=== PATIENT | male | born 1950 | race Caucasian/White ===

== ENCOUNTER → 2017-06-29 | Outpatient (CLI) | payer OTHER, MEDICARE ==
[~2017-06-29] MED LIST: CARDI-OMEGA1000 MG PO; DIOVAN HCT 12.51 TAB PO; MULTIPLE VITAMI1 CAP PO; PREVACID 30MG30 M1 PO; VITAMIN E1000 U/CAP PO; XANAX0.25 MG PO
[2017-06-29 13:26] LABS: HIV 1/2 Antibodies Non-Reactive; HIV-1p24 Antigen Non-Reactive
== END ==
LOC: COL.LAB 11:43
PROVIDERS: Orthopaedic Surgery
DX: Z01.812 Encounter for preprocedural laboratory examination (principal); M17.11 Unilateral primary osteoarthritis, right knee

== ENCOUNTER → 2020-12-15 | Outpatient (CLI) | payer OTHER | LOC: COL.RAD 07:59 | DX: K80.20 Calculus of gallbladder without cholecystitis without obstruction (principal); C79.51 Secondary malignant neoplasm of bone; C61 Malignant neoplasm of prostate; Z90.79 Acquired absence of other genital organ(s); Z96.89 Presence of other specified functional implants | CPT/HCPCS: A9503; Q9967 ==

== ENCOUNTER → 2021-04-12 | Outpatient (CLI) | payer OTHER | LOC: COL.RAD 09:15 | DX: Z01.812 Encounter for preprocedural laboratory examination (principal); C61 Malignant neoplasm of prostate; C79.51 Secondary malignant neoplasm of bone; Z90.89 Acquired absence of other organs | CPT/HCPCS: A9503; Q9967 ==

== ENCOUNTER → 2021-09-27 | Outpatient (CLI) | payer OTHER | LOC: COL.RAD 08:52 | DX: C61 Malignant neoplasm of prostate (principal) | CPT/HCPCS: A9503; Q9967 ==

== ENCOUNTER 2021-12-28 18:17 | Emergency (ER) | payer OTHER ==
[~2021-12-28] VITALS: Ht 180.3 cm; Wt 104.5 kg
[~2021-12-28 18:17] MED LIST changes: +XANAX .25M0.25 MG/TA PO; -XANAX0.25 MG PO
[2021-12-28 18:33] VITALS: TEMP 98.1
[2021-12-28] MEDS ORDERED: CALCIUM 600-D 61 TAB PO (18:57)
[2021-12-28] MEDS ORDERED: VITAMIN C500 MG PO (18:57)
[2021-12-28] MEDS ORDERED: LIDODERM 5% PATC1 EA TP (19:26)
[2021-12-28 19:34] VITALS: BP 131/72; PULSE 88
== END 2021-12-28 19:33 | disposition home or self-care (01) ==
LOC: COL.ER 18:17
DX: R07.81 Pleurodynia (principal); W10.9XXA Fall (on) (from) unspecified stairs and steps, initial encounter; Y93.53 Activity, golf

== ENCOUNTER 2022-01-10 19:56 | Observation (INO) | payer MEDICARE, OTHER ==
[~2022-01-10] VITALS: Ht 180.3 cm; Wt 100.0 kg
[~2022-01-10 19:56] MED LIST changes: +CALCIUM 600-D 61 TAB PO; +LIDODERM 5% PATC1 EA TP; +VITAMIN C500 MG PO
[2022-01-10 20:28] LABS: COLLECTION METHOD CLEAN CATCH
[2022-01-10 20:33] LABS: PH 7 (5-8); SQUAMOUS EPITHELIAL None Seen /hpf (0-10); URINE APPEARANCE Clear (CLEAR/HAZY); URINE BACTERIA None Seen /hpf (NONE SEEN); URINE BILIRUBIN Negative (NEGATIVE); URINE BLOOD Negative (NEGATIVE); URINE COLOR Straw (YELLOW); URINE GLUCOSE Negative (NEGATIVE); URINE KETONE 1+ (NEGATIVE); URINE LEUKOCYTE ESTERASE Negative (NEGATIVE); URINE NITRATE Negative (NEGATIVE); URINE PROTEIN(semi-quant) Negative (NEGATIVE); URINE RBC 0-2 /hpf (0-2); URINE UROBILINOGEN Negative (NEGATIVE)
[2022-01-10 20:52] LABS: BASO % 0.2 % (0.0-2.0); EOS % 0.1 % (0.0-4.0); GRAN # 14.3 K/mm3 (1.4-6.5); GRAN % 88.6 % (42.2-75.2); HEMATOCRIT 37.1 % (42.0-52.0); HEMOGLOBIN 13.3 g/dl (13.5-18.0); LYMPH # 0.8 K/mm3 (1.2-3.4); LYMPH % 4.9 % (20.0-51.0); MEAN CELL VOLUME 89 fl (80.0-100.0); MEAN CORPUSCULAR HEMOGLOBIN 32 pg (27-31); MEAN CORPUSCULAR HGB CONC 36 g/dl (33.0-37.0); MONO # 0.9 K/mm3 (0.1-0.6); MONO % 5.6 % (1.7-9.3); PLATELET COUNT 290 K/mm3 (130-400); RED BLOOD COUNT 4.16 M/mm3 (4.20-5.60); REDCELL DISTRIBUTION WIDTH-CV 11.1 % (11.5-14.5)
[2022-01-10 21:06] LABS: ALANINE AMINOTRANSFERASE 12 U/L (0-55); ALBUMIN 4.3 gm/dL (3.4-4.8); ALKALINE PHOSPHATASE 86 U/L (40-150); ANION GAP 18 mmol/L (7-16); AST,SGOT 24 U/L (5-34); BILIRUBIN,TOTAL 0.6 mg/dL (0.2-1.2); BLOOD UREA NITROGEN 9 mg/dL (8-26); CALCIUM 9.1 mg/dL (8.4-10.2); CARBON DIOXIDE 23 mmol/L (23-31); CHLORIDE 91 mmol/L (98-107); CREATININE, serum 0.77 mg/dL (0.72-1.25); GLUCOSE 128 mg/dL (70-99); LIPASE 18 U/L (8-78); POTASSIUM 3.6 mmol/L (3.5-4.5); SODIUM 132 mmol/L (136-145); TOTAL PROTEIN 7.5 gm/dL (6.2-8.1)
[2022-01-10 21:14] LABS: TROPONIN-I < 0.010 ng/mL (0.00-0.033)
[2022-01-11] MEDS ORDERED: IBU600 MG PO (02:21)
[2022-01-11 09:11] LABS: HEMOGLOBIN 12.1 g/dl (13.5-18.0); MEAN CELL VOLUME 93 fl (80.0-100.0); MEAN CORPUSCULAR HEMOGLOBIN 32 pg (27-31); MEAN CORPUSCULAR HGB CONC 35 g/dl (33.0-37.0); MEAN PLATELET VOLUME 8.7 fl (7.4-10.4); PLATELET COUNT 238 K/mm3 (130-400); RED BLOOD COUNT 3.75 M/mm3 (4.20-5.60); REDCELL DISTRIBUTION WIDTH-CV 11.3 % (11.5-14.5)
[2022-01-11 09:16] LABS: HEMATOCRIT 34.8 % (42.0-52.0)
[2022-01-11 09:25] LABS: CALCIUM 8.5 mg/dL (8.4-10.2); CREATININE, serum 0.76 mg/dL (0.72-1.25); POTASSIUM 3.3 mmol/L (3.5-4.5)
[2022-01-11 09:33] LABS: TROPONIN-I 0.017 ng/mL (0.00-0.033)
[2022-01-11 09:38] LABS: BAND 19 % (0-10); LYMPHOCYTE 5 % (20.0-51.0); NEUTROPHILS 73 % (42.0-75.2)
[2022-01-11 09:39] LABS: PLATELET ESTIMATE NORMAL (NORMAL)
[2022-01-11 13:48] VITALS: BP 133/59; PULSE 91; TEMP 100.4
--- NOTE | 2022-01-11 15:08 | NUR ---
PATIENT ARRIVED ON FLOOR IN BED, ACCOMPANIED WITH ER NURSE. NO COMPLAINTS OF PAIN. LOW GRADE FEVER. RESTING COMFORTABLY. CONSENT SIGNED. IV ICGREEN GIVEN. AWAITING TRANSPORT TO OR.
--- NOTE | 2022-01-11 16:04 | NUR ---
PATIENT TRANSFERED TO [facility] IN BED, 1000ML BAG OF NS HUNG ON STRAIGHT TUBING. VITALS STABLE, NO COMPLAINTS OF PAIN.
--- NOTE | 2022-01-11 18:24 | NUR ---
PATIENT IN OR, ON FLOOR FOR 2HRS THEN TRANSFERED TO [facility]. NO COMPLAINTS OF PAIN. NO SIGNIFICANT EVENTS DURING TME IN [facility]'S [facility]ARE. TEMP OF 100.4, NOTED TO [facility] RN.
[2022-01-11 18:41] VITALS: BP 113/78; PULSE 83; TEMP 98.3
--- NOTE | 2022-01-11 22:04 | NUR ---
PATIENT RECEIVED AROUND 1955 STABLE POST OP SURGICAL INCISION TO ABD AREA INTACT X5 ROUNDED BOWEL SOUNDS HYPOACTIVE. NO PAIN NOTED AT THIS TIME TOLERATING CLEAR LIQUID DIET NO NAUSEA OR VOMITING NOTED. CONTINUING ON IV ABX ZOSYN. REMAINS ON 4L/NC 02SAT 96% NO S/S OF SOB OR DISTRESS NOTED. CALL LIGHT WITHIN REACH [facility] CONTINUE TO MONITOR.
[2022-01-11 23:00] VITALS: BP 120/63; PULSE 107
[2022-01-11 23:25] VITALS: BP 122/64; PULSE 85; TEMP 98.9
[2022-01-12 00:17] VITALS: BP 121/65; PULSE 73
[2022-01-12 04:17] VITALS: BP 141/66; PULSE 96; TEMP 98.3
--- NOTE | 2022-01-12 06:06 | NUR ---
PATIENT WAS ABLE TO AMBULATE TO BR TOLERATING WELL BELCHING AND HAD BOWEL MOVEMENT X2 LAST NIGHT. VERY PLEASE WITH HOW WELL HIS PAIN IS GONE AND FEELING VERY COMFORTABLE. NO S/S PAIN NOTED PATIENT IS TOELRATING CLEAR LIQUIDS THROUGHOUT SHIFT. SLEPT THROUGHOUT SHIFT COMFORTABLY WILL CONTINUE TO MONITOR.
[2022-01-12 06:18] LABS: BASO % 0.2 % (0.0-2.0); GRAN # 12.4 K/mm3 (1.4-6.5); GRAN % 90.7 % (42.2-75.2); LYMPH # 0.6 K/mm3 (1.2-3.4); LYMPH % 4.5 % (20.0-51.0); MEAN CELL VOLUME 92 fl (80.0-100.0); MEAN CORPUSCULAR HGB CONC 35 g/dl (33.0-37.0); MEAN PLATELET VOLUME 9.2 fl (7.4-10.4); MONO # 0.5 K/mm3 (0.1-0.6); MONO % 3.6 % (1.7-9.3); PLATELET COUNT 179 K/mm3 (130-400); RED BLOOD COUNT 3.13 M/mm3 (4.20-5.60); REDCELL DISTRIBUTION WIDTH-CV 11.5 % (11.5-14.5)
[2022-01-12 06:25] LABS: HEMATOCRIT 28.7 % (42.0-52.0); HEMOGLOBIN 10.7 g/dl (13.5-18.0); MEAN CORPUSCULAR HEMOGLOBIN 34 pg (27-31)
[2022-01-12 06:35] LABS: ALBUMIN 2.7 gm/dL (3.4-4.8); BILIRUBIN,TOTAL 0.8 mg/dL (0.2-1.2); CALCIUM 7.5 mg/dL (8.4-10.2); CREATININE, serum 0.67 mg/dL (0.72-1.25); POTASSIUM 3.4 mmol/L (3.5-4.5); TOTAL PROTEIN 5.5 gm/dL (6.2-8.1)
[2022-01-12 07:16] VITALS: BP 127/57; PULSE 86; TEMP 98.8
--- NOTE | 2022-01-12 08:22 | NUR ---
Shift assessment completed. Patient refused morning vitamins, stating "I don't need those, and I don't really want to be charged for them." Patient took first dose of potassium replacement and stated, "I don't want to drink that again today or tomorrow. I'm not taking anymore of that." Patient also questioned why he was not receiving his BP medications and nifedipine. This RN informed that patient that nifedipine was not on his med rec, however it does show that the patient recently filled this medication. Medication added to med rec. Patient also requested PRN xanax. Patient states he is very unhappy. Patient A&Ox4, and a SBA. Gait is steady and patient only needs assistance w/ the IV pole. 5 lap sites on abdomen look good, no redness, swelling, or drainage present. Patient states that his muscles are a little sore. Patient informed that this is normal after surgery.
[2022-01-12] MEDS ORDERED: PROCARDIA XL90 MG PO (09:24)
[2022-01-12] MEDS ORDERED: XTANDI40 MG PO (09:24)
[2022-01-12] MEDS ORDERED: ZOCOR 40MG40 MG PO (09:25)
--- NOTE | 2022-01-12 11:12 | NUR ---
JORY met with the patient and his , Kelley (ph#[phone]), to discuss discharge plan. The patient lives in [place] with his . He reports independence with ADLs and does not have any DME. The patient's PCP is Dr. Lucien Fuller and he receives his medications from [facility]. The patient does not have a DPOA-HC in EMR, but he states that he does have one completed and that it designates his . The patient plans on returning home with his upon discharge. No additional needs at this time. *Discharge plan: home with *
--- NOTE | 2022-01-12 11:31 | NUR ---
Received report that patient takes an oral chemotherapy agent daily for metastatic prostate cancer. Verified with primary RN that patient takes Xtandi (Enzalutamide). Chemo precautions for urine and stool are to be followed for 2 days after last administration. Notified primary nurse and sign placed outside patient room.
[2022-01-12 12:13] VITALS: BP 134/62; PULSE 87; TEMP 98.1
--- NOTE | 2022-01-12 13:28 | NUR ---
First visit from the ornamental iron erector. No needs right now.
[2022-01-12] MEDS ORDERED: AMOXICILLIN 8751 TAB PO (14:13)
[2022-01-12] MEDS ORDERED: ZOFRAN ODT4 MG PO (14:14)
[2022-01-12] MEDS ORDERED: TYLENOL 325MG325 MG PO (14:14)
[2022-01-12] MEDS ORDERED: ROXICODONE 55 MG/TAB PO (14:15)
--- NOTE | 2022-01-12 15:30 | NUR ---
The patient was downgraded to observation status. JORY and cement sprayer helper, Pinky, met with the patient to notify. JORY presented the Medicare Outpatient Observation Notice Form. The patient verbalized understanding and signed the form. JORY provided him with a copy.
--- NOTE | 2022-01-12 16:08 | NUR ---
IV D/C. DISCHARGE INSTRUCTIONS GIVEN, ALL QUESTIONS ANSWERED, AT BEDSIDE. PT ESCORTED DOWN TO VEHICLE WITH BELONGINGS. WILL D/C FROM SYSTEM.
== END 2022-01-12 16:10 | disposition home or self-care (01) ==
LOC: COL.ER 19:56 → MEDICAL 01-11 10:00 → EDBEDREQ 01-11 12:28 → MEDICAL 01-11 13:31
PROVIDERS: Nurse Practitioner; Physician Assistant; Surgery; ADMIT Family Medicine
DX: K80.00 Calculus of gallbladder with acute cholecystitis without obstruction (principal); K82.A1 Gangrene of gallbladder in cholecystitis; S22.42XA Multiple fractures of ribs, left side, initial encounter for closed fracture; E87.6 Hypokalemia; E87.1 Hypo-osmolality and hyponatremia; D72.829 Elevated white blood cell count, unspecified; R94.31 Abnormal electrocardiogram [ECG] [EKG]; K21.9 Gastro-esophageal reflux disease without esophagitis; I10 Essential (primary) hypertension; C61 Malignant neoplasm of prostate; C79.9 Secondary malignant neoplasm of unspecified site; F41.9 Anxiety disorder, unspecified; Z90.79 Acquired absence of other genital organ(s); Z79.899 Other long term (current) drug therapy
CPT/HCPCS: 99223-AI; 99233-AI; 99239; C9113; G0378; J0330; J0690; J1100; J1170; J2270; J2405; J2543; J2550; J2704; J3010; J7030; Q9967